=== PATIENT | male | born 1965 | race Caucasian/White ===

== ENCOUNTER → 2016-05-15 | Outpatient (CLI) | payer BC ==
--- NOTE | 2016-05-15 12:15 | XR ---
EXAMINATION TYPE: XR shoulder complete LT DATE OF EXAM: 05/15/2016 12:08 PM CLINICAL HISTORY: Left shoulder pain TECHNIQUE: Three views of the left shoulder are obtained. COMPARISON: None. FINDINGS: There is no acute fracture/dislocation evident in the left shoulder. The acromioclavicula r and glenohumeral joint spaces appear within normal limits. The visualized ribs are intact and unre markable. IMPRESSION: 3 views left shoulder felt within normal limits.
== END | disposition home or self-care (01) ==
LOC: RADXRMAIN 11:43
PROVIDERS: ATTEND Family Medicine
DX: M25.512 Pain in left shoulder (principal)

== ENCOUNTER → 2016-05-25 | Outpatient (CLI) | payer BC ==
--- NOTE | 2016-05-25 18:44 | XR ---
EXAMINATION TYPE: XR cervical spine limited DATE OF EXAM: 05/25/2016 4:57 PM COMPARISON: NONE HISTORY: Neck pain TECHNIQUE: 3 views FINDINGS: The vertebra show mild straightening. Disc spaces are fairly normal. There is mild spurring at C5-6 anteriorly. Posterior elements are intact. Atlantoaxial facet joint is normal. There are no cervical ribs. IMPRESSION: Mild spondylosis at C5-6. No fracture.
== END | disposition home or self-care (01) ==
LOC: RADXRMAIN 16:35
PROVIDERS: ATTEND Family Medicine
DX: M47.812 Spondylosis without myelopathy or radiculopathy, cervical region (principal)
CPT/HCPCS: 72040

== ENCOUNTER → 2016-06-01 | Outpatient (CLI) | payer BC ==
--- NOTE | 2016-06-01 22:35 | MR ---
EXAMINATION TYPE: MR cervical spine wo con DATE OF EXAM: 06/01/2016 6:54 PM COMPARISON: NONE HISTORY: neck and Left arm pain for approx. 1 year TECHNIQUE: Multiplanar, multisequence images of the cervical spine were acquired. C2-C3: No evidence for degenerative disc disease. No disc bulge/herniation or protrusion. No Canal stenosis. Foramina are patent bilaterally. C3-C4: Central disc bulging with mild effacement of thecal sac but no canal stenosis. There is uncove rtebral joint hypertrophy bilaterally with mild facet arthropathy and mild to moderate bilateral fora wesley encroachment. C4-C5: Mild uncovertebral joint hypertrophy. No canal stenosis or disc herniation. [id number] d egenerative disc disease.. C5-C6: Moderate degenerative disc disease with broad-based central disc protrusion and mild effacemen t of thecal sac. Mild canal stenosis. Facet arthropathy and uncovertebral joint hypertrophy contribut e to mild bilateral foraminal encroachment. C6-C7: Broad-based central disc protrusion with large left paracentral and lateral disc herniation re sulting in severe left-sided foraminal encroachment and nerve root impingement. There is moderate can al stenosis and encroachment along the anterior margin of the spinal cord. Uncovertebral joint hypert rophy is seen bilaterally with [id number] bilateral foraminal encroachment. C7-T1: No evidence for degenerative disc disease. No disc bulge/herniation or protrusion. No Canal stenosis. Foramina are patent bilaterally. Cervical segments are intact. There is normal alignment. Cervical spinal cord is of normal signal. Craniovertebral junction relationships are within normal limits. Is a soft tissue lesion in the ant erior margin of the left neck. Measured approximately 2 cm and possibly related to left submandibular gland. IMPRESSION: 1. There is a broad-based central disc protrusion C6-C7 with a large left paracentral and lateral dis c herniation resulting in severe left-sided foraminal encroachment and nerve root impingement. Modera te central canal stenosis and encroachment along the anterior margin of the spinal cord. 2. Broad-based central disc protrusion capped by spur C5-C6 with bilateral foraminal encroachment and mild canal stenosis. 3. Focal central disc bulging C3-C4 with mild effacement of the thecal sac. Uncovertebral joint hyper trophy is seen with mild to moderate bilateral foraminal encroachment. 4. Soft tissue lesion anterior left neck only partially imaged may be related to the submandibular gl and. Possibly with asymmetry or atrophy of the right submandibular gland. Recommend CT soft tissue ne ck for further evaluation.
== END | disposition home or self-care (01) ==
LOC: RADMRIMAIN 18:11
PROVIDERS: ATTEND Family Medicine
DX: M50.11 Cervical disc disorder with radiculopathy, high cervical region (principal); M48.02 Spinal stenosis, cervical region
CPT/HCPCS: 72141

== ENCOUNTER → 2016-06-16 | Outpatient (CLI) | payer BC ==
--- NOTE | 2016-06-16 19:49 | CT ---
EXAMINATION TYPE: CT soft tissue neck wo con DATE OF EXAM: 06/16/2016 7:38 PM COMPARISON: NONE HISTORY: Abnormal MRI of cervical spine. No complaints at time of scan. CT DLP: 543.70 mGycm Automated exposure control for dose reduction was used. FINDINGS: There is normal branching pattern of the great vessels on the aortic arch. Thyroid gland is symmetric . There is a tiny calcification in the left thyroid lobe. The right submandibular salivary gland is relatively small. The parotid glands are symmetric. I see no cervical adenopathy. I see no submandibular mass. Epiglott is is normal. There is no evidence of a pharyngeal mass. Subglottic trachea appears normal. Tonsils a nd adenoids are within normal limits. IMPRESSION: THERE IS EVIDENCE OF A HYPOPLASTIC RIGHT SUBMANDIBULAR SALIVARY GLAND. THERE IS A RELATIVELY LARGE LE FT SUBMANDIBULAR SALIVARY GLAND IS PROBABLY COMPENSATORY HYPERTROPHY. NO CERVICAL ADENOPATHY SEEN. SM ALL MUCOUS RETENTION CYST IS NOTED IN THE LEFT MAXILLARY SINUS.
== END | disposition home or self-care (01) ==
LOC: RADCTMAIN 19:12
PROVIDERS: ATTEND Family Medicine
DX: K11.1 Hypertrophy of salivary gland (principal)
CPT/HCPCS: 70490